=== PATIENT | female | born 1940 | race Native Hawaiian/Other Pacific Islander ===

== ENCOUNTER 2016-06-15 16:07 | Emergency (ER) | payer OTHER ==
[~2016-06-15] VITALS: Ht 162.6 cm; Wt 106.6 kg
[2016-06-15 16:50] VITALS: TEMP 98.6
[2016-06-15 19:00] VITALS: BP 155/82
== END 2016-06-15 19:00 | disposition home or self-care (01) ==
LOC: ED 16:07
DX: J45.909 Unspecified asthma, uncomplicated (principal); J98.01 Acute bronchospasm
CPT/HCPCS: 99282; J1100

== ENCOUNTER 2016-07-12 08:20 | Outpatient (CLI) | payer OTHER ==
[2016-07-12 09:07] LABS: PLATELET COUNT 197 K/uL (152-353)
[2016-07-12 09:25] LABS: POTASSIUM 3.7 mmol/L (3.6-5.2)
== END 2016-07-12 19:00 | disposition home or self-care (01) ==
LOC: LABW 08:20
PROVIDERS: Nurse Practitioner
DX: N28.89 Other specified disorders of kidney and ureter (principal); I10 Essential (primary) hypertension; E11.9 Type 2 diabetes mellitus without complications; E78.00 Pure hypercholesterolemia, unspecified; E55.9 Vitamin D deficiency, unspecified
CPT/HCPCS: 36415; 80053; 80061; 82043; 82306; 82570; 83036; 85027

== ENCOUNTER 2016-10-17 09:40 | Outpatient (CLI) | payer OTHER | END 2016-10-17 19:26 | disposition home or self-care (01) | LOC: CT 09:40 | DX: R51 Headache (principal) ==

== ENCOUNTER 2017-03-21 09:54 | Outpatient (CLI) | payer OTHER ==
[2017-03-21 11:31] LABS: PLATELET COUNT 242 K/uL (152-353)
[2017-03-21 11:34] LABS: POTASSIUM 4.7 mmol/L (3.6-5.2)
== END 2017-03-21 19:31 | disposition home or self-care (01) ==
LOC: LABW 09:54
PROVIDERS: Nurse Practitioner
DX: E11.9 Type 2 diabetes mellitus without complications (principal); E55.9 Vitamin D deficiency, unspecified; R53.83 Other fatigue; E78.00 Pure hypercholesterolemia, unspecified; Z00.00 Encounter for general adult medical examination without abnormal findings
CPT/HCPCS: 36415; 80053; 80061; 82043; 82306; 82570; 83036; 84443; 85027

== ENCOUNTER 2017-10-30 12:23 | Outpatient (CLI) | payer OTHER | END 2017-10-30 23:22 | disposition home or self-care (01) | LOC: US 12:23 | DX: M54.2 Cervicalgia (principal); Z78.0 Asymptomatic menopausal state ==

== ENCOUNTER 2018-06-30 09:03 | Outpatient (CLI) | payer OTHER ==
[2018-06-30 10:12] LABS: PLATELET COUNT 241 K/uL (152-353)
[2018-06-30 10:41] LABS: POTASSIUM 4.5 mmol/L (3.6-5.2)
== END 2018-06-30 19:10 | disposition home or self-care (01) ==
LOC: LABW 09:03
PROVIDERS: Nurse Practitioner
DX: D64.9 Anemia, unspecified (principal); E11.9 Type 2 diabetes mellitus without complications
CPT/HCPCS: 36415; 80053; 82607; 83036; 85027

== ENCOUNTER 2018-09-08 11:09 | Outpatient (CLI) | payer OTHER | END 2018-09-08 23:00 | disposition home or self-care (01) | LOC: MAMMO 11:09 | DX: Z12.31 Encounter for screening mammogram for malignant neoplasm of breast (principal) ==

== ENCOUNTER 2018-09-25 10:03 | Outpatient (CLI) | payer OTHER ==
[2018-09-25 10:43] LABS: POTASSIUM 4.7 mmol/L (3.6-5.2)
== END 2018-09-25 21:01 | disposition home or self-care (01) ==
LOC: LABW 10:03
PROVIDERS: Nurse Practitioner
DX: N28.89 Other specified disorders of kidney and ureter (principal); E11.9 Type 2 diabetes mellitus without complications; E55.9 Vitamin D deficiency, unspecified
CPT/HCPCS: 36415; 80048; 82306; 83036

== ENCOUNTER 2018-11-04 07:57 | Outpatient (CLI) | payer OTHER ==
[~2018-11-04] VITALS: Ht 195.6 cm; Wt 96.2 kg
== END 2018-11-04 19:13 | disposition home or self-care (01) ==
LOC: NM 07:57
DX: R07.89 Other chest pain (principal); R06.02 Shortness of breath
CPT/HCPCS: 93306; A9500; J2785

== ENCOUNTER 2019-01-08 09:46 | Outpatient (CLI) | payer OTHER ==
[2019-01-08 10:09] LABS: PLATELET COUNT 211 K/uL (152-353)
[2019-01-08 10:27] LABS: POTASSIUM 4.9 mmol/L (3.6-5.2)
== END 2019-01-08 23:51 | disposition home or self-care (01) ==
LOC: LABW 09:46
PROVIDERS: Nurse Practitioner
DX: I10 Essential (primary) hypertension (principal); E11.49 Type 2 diabetes mellitus with other diabetic neurological complication; E78.00 Pure hypercholesterolemia, unspecified
CPT/HCPCS: 36415; 80053; 80061; 82043; 82570; 83036; 85027

== ENCOUNTER 2019-05-21 15:34 | Emergency (ER) | payer OTHER ==
[~2019-05-21] VITALS: Ht 165.1 cm; Wt 90.7 kg
[2019-05-21 17:49] LABS: PLATELET COUNT 201 K/uL (152-353)
[2019-05-21 17:55] LABS: POTASSIUM 4.6 mmol/L (3.6-5.2); SODIUM 136 mmol/L (136-145)
[2019-05-21 20:10] VITALS: BP 154/78; TEMP 97.9
== END 2019-05-21 20:10 | disposition home or self-care (01) ==
LOC: ED 15:34
PROVIDERS: Emergency Medicine
DX: E86.0 Dehydration (principal); D64.89 Other specified anemias; N28.9 Disorder of kidney and ureter, unspecified; W18.39XA Other fall on same level, initial encounter; Y92.89 Other specified places as the place of occurrence of the external cause
CPT/HCPCS: 80053; 80307; 81000; 82550; 82962; 83735; 83880; 84484; 85027; 93005; 99283

== ENCOUNTER 2019-06-05 08:31 | Outpatient (CLI) | payer OTHER ==
[2019-06-05] MEDS ORDERED: MICARDIS80 MG PO (09:39)
[2019-06-05] MEDS ORDERED: HYDROCHLOROT12.5 M1 PO (09:40)
[2019-06-05] MEDS ORDERED: JANUVIA100 MG PO (09:41)
[2019-06-05] MEDS ORDERED: DULOXETINE HCL60 MG PO (09:41)
[2019-06-05] MEDS ORDERED: ACID REDUCER20 MG PO (09:41)
[2019-06-05] MEDS ORDERED: ATEN50TA36 PO (09:42)
[2019-06-05] MEDS ORDERED: METFTAB PO (09:42)
== END 2019-06-05 08:36 | disposition short-term general hospital (02) ==
LOC: AMB 08:31
DX: R06.03 Acute respiratory distress (principal); R07.89 Other chest pain
CPT/HCPCS: A0425; A0427

== ENCOUNTER 2019-06-05 08:38 | Emergency (ER) | payer OTHER ==
[~2019-06-05] VITALS: Ht 165.1 cm; Wt 99.8 kg
[2019-06-05 08:43] VITALS: TEMP 97.7
[2019-06-05 09:26] LABS: PLATELET COUNT 177 K/uL (152-353)
[2019-06-05 09:28] LABS: POTASSIUM 4.1 mmol/L (3.6-5.2); SODIUM 137 mmol/L (136-145)
[2019-06-05] MEDS ORDERED: MICARDIS80 MG PO (09:39)
[2019-06-05] MEDS ORDERED: HYDROCHLOROT12.5 M1 PO (09:40)
[2019-06-05] MEDS ORDERED: JANUVIA100 MG PO (09:41)
[2019-06-05] MEDS ORDERED: DULOXETINE HCL60 MG PO (09:41)
[2019-06-05] MEDS ORDERED: ACID REDUCER20 MG PO (09:41)
[2019-06-05] MEDS ORDERED: ATEN50TA36 PO (09:42)
[2019-06-05] MEDS ORDERED: METFTAB PO (09:42)
[2019-06-05 09:44] LABS: PARTIAL THROMBOPLASTIN TIME 25.3 SECONDS (24.5-33.6)
[2019-06-05 11:42] VITALS: BP 190/96
== END 2019-06-05 12:45 | disposition short-term general hospital (02) ==
LOC: ED 08:38
PROVIDERS: Family Medicine
DX: I48.91 Unspecified atrial fibrillation (principal); J81.0 Acute pulmonary edema; I10 Essential (primary) hypertension
CPT/HCPCS: 36600; 80053; 81000; 82550; 82805; 84484; 85027; 85379; 85610; 85730; 93005; 96374; 96376; 99284; J3490

== ENCOUNTER 2019-06-05 12:43 | Outpatient (CLI) | payer OTHER ==
[~2019-06-05 12:43] MED LIST: ACID REDUCER20 MG PO; ATEN50TA36 PO; DULOXETINE HCL60 MG PO; HYDROCHLOROT12.5 M1 PO; JANUVIA100 MG PO; METFTAB PO; MICARDIS80 MG PO
== END 2019-06-05 13:13 | disposition short-term general hospital (02) ==
LOC: AMB 12:43
DX: I48.91 Unspecified atrial fibrillation (principal); R06.02 Shortness of breath
CPT/HCPCS: A0425; A0427

== ENCOUNTER 2019-07-01 11:40 | Outpatient (CLI) | payer OTHER | END 2019-07-01 20:24 | disposition home or self-care (01) | LOC: LAB 11:40 | DX: N39.0 Urinary tract infection, site not specified (principal); R30.0 Dysuria | CPT/HCPCS: 81000; 87086; 87088 ==

== ENCOUNTER 2019-07-10 15:46 | Outpatient (CLI) | payer OTHER | END 2019-07-10 15:50 | disposition short-term general hospital (02) | LOC: AMB 15:46 | DX: R41.82 Altered mental status, unspecified (principal); I48.91 Unspecified atrial fibrillation | CPT/HCPCS: A0425; A0427 ==

== ENCOUNTER 2019-07-10 15:51 | Emergency (ER) | payer OTHER ==
[~2019-07-10] VITALS: Ht 165.1 cm; Wt 99.8 kg
[2019-07-10 15:51] VITALS: TEMP 98.1
[2019-07-10 16:33] LABS: POTASSIUM 3.2 mmol/L (3.6-5.2)
[2019-07-10 16:36] LABS: PLATELET COUNT 259 K/uL (152-353)
[2019-07-10 16:45] LABS: PARTIAL THROMBOPLASTIN TIME 27.4 SECONDS (24.5-33.6)
[2019-07-10 18:58] VITALS: BP 145/79
== END 2019-07-10 18:58 | disposition short-term general hospital (02) ==
LOC: ED 15:54
PROVIDERS: Family Medicine
DX: R41.82 Altered mental status, unspecified (principal); I48.91 Unspecified atrial fibrillation
CPT/HCPCS: 36600; 80053; 81000; 82805; 83605; 84484; 85027; 85610; 85730; 87040; 93005; 96374; 96376; 99285; J2060; J2250